=== PATIENT | male | born 1955 | race Caucasian/White ===

== ENCOUNTER 2021-09-03 13:53 | Observation (INO) | payer MEDICARE, OTHER ==
[~2021-09-03] VITALS: Ht 180.3 cm; Wt 136.0 kg
[2021-09-03 15:02] LABS: HEMATOCRIT 41.9 % (42.0-52.0); HEMOGLOBIN 14.7 g/dl (13.5-18.0); MEAN CELL VOLUME 91 fl (80.0-100.0); MEAN CORPUSCULAR HEMOGLOBIN 32 pg (27-31); MEAN CORPUSCULAR HGB CONC 35 g/dl (33.0-37.0); PLATELET COUNT 278 K/mm3 (130-400); RED BLOOD COUNT 4.61 M/mm3 (4.20-5.60); REDCELL DISTRIBUTION WIDTH-CV 12.5 % (11.5-14.5)
[2021-09-03 15:19] LABS: ALBUMIN 4.5 gm/dL (3.4-4.8); BILIRUBIN,TOTAL 1.2 mg/dL (0.2-1.2); CALCIUM 9.4 mg/dL (8.4-10.2); CREATININE, serum 1.13 mg/dL (0.72-1.25); POTASSIUM 3.6 mmol/L (3.5-4.5); TOTAL PROTEIN 7.9 gm/dL (6.2-8.1)
[2021-09-03 15:53] LABS: COLLECTION METHOD CLEAN CATCH
[2021-09-03 16:09] LABS: PH 7 (5-8); SQUAMOUS EPITHELIAL None Seen /hpf (0-10); URINE APPEARANCE Clear (CLEAR/HAZY); URINE BACTERIA None Seen /hpf (NONE SEEN); URINE BILIRUBIN Negative (NEGATIVE); URINE BLOOD 2+ (NEGATIVE); URINE COLOR Straw (YELLOW); URINE GLUCOSE Negative (NEGATIVE); URINE KETONE 1+ (NEGATIVE); URINE LEUKOCYTE ESTERASE Negative (NEGATIVE); URINE NITRATE Negative (NEGATIVE); URINE PROTEIN(semi-quant) 1+ (NEGATIVE); URINE RBC 20-50 /hpf (0-2); URINE UROBILINOGEN Negative (NEGATIVE)
[2021-09-03 16:22] LABS: BAND 1 % (0-10); LYMPHOCYTE 8 % (20.0-51.0); NEUTROPHILS 90 % (42.0-75.2); PLATELET ESTIMATE NORMAL (NORMAL)
--- NOTE | 2021-09-03 20:22 | NUR ---
Pt. arrived to the floor via wheelchair at 1900. Pt. is A&OX3, and independent. INT to lt. forearm patent. Pt. denies pain at this time. Call light within reach.
[2021-09-03] MEDS ORDERED: COZAAR 50MG50 MG/TAB PO (20:24)
[2021-09-03] MEDS ORDERED: NORVASC 10MG10 MG PO (20:24)
[2021-09-03 21:16] VITALS: BP 158/74; PULSE 75; TEMP 97.8
[2021-09-03 23:54] VITALS: BP 149/69; PULSE 68; TEMP 98.1
[2021-09-04] VITALS (7 sets, daily range): BP systolic 136–160; BP diastolic 63–75; PULSE 61–63; TEMP 98.5–98.6
--- NOTE | 2021-09-04 07:17 | NUR ---
Pt off the floor for surgical procedure during shift report.
[2021-09-04] MEDS ORDERED: PERCOCET 325 MG1 TA2 PO (07:56)
--- NOTE | 2021-09-04 10:23 | NUR ---
Initial visit; Patient seems in a great mood and feeling much better, he says. His and he both thanked [employer] for asking and for visiting. [employer] offered God's blessings to them and wished them well.
--- NOTE | 2021-09-04 11:11 | NUR ---
Pt arrived from surgery at approximately 0850. Patient A&O , tolerating ice chips upon arrival. Assisted patient to the bathroom and voided a small amount. No complaints of pain. Patient has discharge orders. Reviewed discharge instructions with patient and spouse. Patient chooses to follow up with physician in [place], [place]. Requested paperwork faxed to their office. INT removed from L hand. Patient escorted out.
== END 2021-09-04 11:17 | disposition home or self-care (01) ==
LOC: COL.ER 13:53 → SURG 17:52
PROVIDERS: Physician Assistant; ADMIT Urology
DX: N20.1 Calculus of ureter (principal); N28.89 Other specified disorders of kidney and ureter; I10 Essential (primary) hypertension; G47.33 Obstructive sleep apnea (adult) (pediatric); Z99.89 Dependence on other enabling machines and devices; Z20.822 Contact with and (suspected) exposure to COVID-19; Z79.899 Other long term (current) drug therapy
CPT/HCPCS: C1769; C2617; G0008; G0378; J0690; J0696; J1100; J1885; J2270; J2405; J2704; J3010; J7030; Q9967